=== PATIENT | female | born 1935 | race Caucasian/White ===

== ENCOUNTER 2016-11-11 20:28 | Emergency (ER) | payer MEDICARE ==
--- NOTE | ~2016-11-11 | EKG ---
PATIENT: MAGDIEL CARUSO UNIT #: [id number] Ventricular Rate: 82 BPM Atrial Rate: 82 BPM P-R Interval: 148 ms QRS Duration: 126 ms Q-T Interval: 394 ms QTC Calculation(Bezet): 460 ms P [place]: 16 degrees Calculated R [place]: 5 degrees Calculated T [place]: 40 degrees Diagnosis Line: Sinus rhythm with Premature atrial complexes Diagnosis Line: Left bundle branch block with repolarization Diagnosis Line: abnormality Diagnosis Line: Abnormal ECG Diagnosis Line: When compared with ECG of 16-JUN-2016 19:16, Diagnosis Line: Premature atrial complexes are now Present Diagnosis Line: Confirmed by YOLY ELIZABETH MD ([id number]) on 11/12/2016 Diagnosis Line: 12:07:59 PM INTERPRETING MD: GLENN LING
--- NOTE | ~2016-11-11 | CR72 ---
[facility] A Service of [facility] RADIOLOGY TEXT RESULTS PATIENT: MAGDIEL CARUSO I LOCATION: [facility] : 31 UNIT #: [id number] AGE: [address]: Ignacio Medina MD SEX: F ORDER DR: [id number] [facility] [address] [place], [place] [address] [id number] MR#: [id number] #: [id number] NAME: MAGDIEL CARUSO I. : 1935 SEX: F STUDY DATE/TIME: 11/11/2016 19:10 UNIT: [facility] ROOM: STUDY DESCRIPTION: CR Chest Single View Portable Attending Physician: Ignacio Medina M.D. Ordering Physician: Ignacio Medina M.D. Primary Care Physician: Yan Chi M.D. MEDICAL IMAGING REPORT This report is preliminary unless electronic signature is present EXAM Portable chest HISTORY Cough, congestion and wheezing x1 week. COMPARISON 06/16/2016 FINDINGS Portable view of the chest demonstrates coarse parenchymal markings suggesting prior inflammatory disease. No acute airspace disease or consolidation. No effusions. Mild cardiomegaly without failure. Aortic atherosclerotic changes. No visible pneumothorax. Dictated by... Timothy Lee M.D. THIS IS AN ELECTRONICALLY VERIFIED REPORT Timothy Lee M.D. at 11/12/2016 5:11 PM Shreya TD: 11/12/2016 08:41 JOB #: [id number] MEDICAL IMAGING REPORT COPY
[2016-11-11 19:36] LABS: BASOPHIL# 0.1 X10e3 (0-0.3); BASOPHIL% 0.7 % (0-2.5); EOSINOPHIL# 0.2 X10e3 (0-0.7); EOSINOPHIL% 1.1 % (0.0-7.0); HEMOGLOBIN 12.4 gm/dL (12.0-16.0); LYMPHOCYTE# 2.8 X10e3 (1.0-3.5); MEAN CELL VOLUME 85.4 FL (83-96); MEAN CORPUSCULAR HEMOGLOBIN 27.2 PG (28-34); MEAN CORPUSCULAR HGB CONC 31.9 g/dL (30-36); MEAN PLATELET VOLUME 7.4 FL (6.5-11.5); MONOCYTE# 1.4 X10e3 (0-1.0); MONOCYTE% 8.1 % (3.0-12.0); NEUTROPHIL# 13.1 X10e3 (1.5-7.1); NEUTROPHIL% 74.1 % (40-75); PLATELET COUNT 531 X10e3 (140-420); RED BLOOD COUNT 4.57 X10e (3.90-5.30); RED CELL DISTRIBUTION WIDTH 15.7 % (11.0-15.5); WHITE BLOOD COUNT 17.7 X10e3 (4.0-10.5)
[2016-11-11 19:39] LABS: DIFF IND YES
[2016-11-11 20:01] LABS: BLOOD UREA NITROGEN 23 mg/dL (9-23); BUN/CREATININE RATIO 28.75; CALCIUM SERUM 9.7 mg/dL (8.4-10.2); CARBON DIOXIDE 26 mmol/L (22-31); CHLORIDE 104 mmol/L (100-111); CREATININE SERUM 0.8 mg/dL (0.6-1.4); GLOM FILT RATE Estimated ABOVE60 mL/min (>60); GLUCOSE FASTING 88 mg/dL (70-110); POTASSIUM 3.5 mmol/L (3.5-5.1); SODIUM 140 mmol/L (135-145)
[2016-11-11 20:08] LABS: INFLUENZA A NEG (NEG); INFLUENZA B NEG (NEG)
[2016-11-11 20:12] LABS: PLATELET ESTIMATE INCREASED (NORMAL); RBC NORMAL YES
[~2016-11-11 20:28] MED LIST: ASPIRIN81 M2 PO; CENTRUM SILVER PO; CIPRO HC OTIC S10 ML OT; CIPRO250 MG PO; CLARITIN10 M2 PO; HYCODAN60 ML 5MG/ DOB; LASIX20 MG PO; LATANOPROST2.5 ML OU; LISINOPRIL20 MG PO; LOPRESSOR PO; MEDROL DOSEPAK4 MG DOB; METOPROLOL TAR25 MG PO; NEXIUM PO; NORVASC10 MG PO; PANTOPRAZOLE SO40 MG PO; PLAVIX PO; PREDNISONE5 M1 PO; PRILOSEC40 MG PO; PRINIVIL20 M1 PO; TESSALON200 MG PO; TRAMADOL HCL50 M1 PO; TYLENOL ARTHRITIS; TYLOX1 CAP 5/50 PO; VALSARTAN80 MG PO; VITAMIN B12-FO1 EACH PO; XALATAN OP; XALATAN OU; ZALATAN OP; ZITHROMAX PO; ZOCOR PO
== END 2016-11-11 21:42 | disposition home or self-care (01) ==
LOC: CED 20:28
PROVIDERS: Emergency Medicine
DX: J44.1 Chronic obstructive pulmonary disease with (acute) exacerbation (principal); J44.0 Chronic obstructive pulmonary disease with (acute) lower respiratory infection; J20.9 Acute bronchitis, unspecified; Z88.5 Allergy status to narcotic agent; Z88.7 Allergy status to serum and vaccine
CPT/HCPCS: 36415; 71010; 80048; 83880; 85025; 87804; 93005; 94640; 99283